=== PATIENT | female | born 1985 | race Asian ===

== ENCOUNTER 2017-12-10 03:00 | Inpatient (IN) | payer SELFPAY ==
[~2017-12-10] VITALS: Ht 164 cm; Wt 68.0 kg
[2017-12-10] MEDS ORDERED: PREN1SGL25 PO (04:35)
[2017-12-10] MEDS ORDERED: METHYLERGONOVINE 0.2 MG/ML AMP IM PRN ×2 (04:35→07:20)
[2017-12-10] MEDS ORDERED: CARBOPROST 250 MCG/ML AMP IM PRN (04:35)
[2017-12-10] MEDS ORDERED: LACTATED RINGERS 1,000 ML IV SCH (04:35)
[2017-12-10] MEDS ORDERED: CITRIC ACID/SODIUM CITRATE 30 ML UDC ONE (05:11)
[2017-12-10] MEDS ORDERED: ceFAZolin 1,000 MG VIAL ONE (05:11)
[2017-12-10 05:13] LABS: BASOPHILS # (AUTO) 0.2 K/uL (0.00-0.22); BASOPHILS % (AUTO) 2.1 % (0.0-2.0); EOSINOPHILS # (AUTO) 0.4 K/uL (0-0.4); EOSINOPHILS % (AUTO) 4.6 % (0.0-4.0); HEMATOCRIT 33.2 % (36-48); HEMOGLOBIN 10.4 g/dL (12.0-16.0); LYMPHOCYTES # (AUTO) 1.9 K/uL (2.5-16.5); LYMPHOCYTES % (AUTO) 20.2 % (20.5-51.1); MEAN CORPUSCULAR HEMOGLOBIN 26 pg (27-31); MEAN CORPUSCULAR HGB CONC 31 g/dL (33-37); MEAN CORPUSCULAR VOLUME 81 fL (80-94); MONOCYTES # (AUTO) 0.7 K/uL (0.8-1.0); MONOCYTES % (AUTO) 6.9 % (1.7-9.3); NEUTROPHILS # (AUTO) 6.4 K/uL (1.8-7.7); NEUTROPHILS % (AUTO) 66.2 % (42.2-75.2); PLATELET COUNT (AUTO) 225 K/uL (140-450); RED BLOOD CELL COUNT(AUTO) 4.08 MIL/uL (4.20-5.40); RED CELL DISTRIBUTION WIDTH 13.6 % (11.6-13.7); WHITE BLOOD COUNT (AUTO) 9.6 K/uL (4.8-10.8)
[2017-12-10 05:43] VITALS: BP 99/61
[2017-12-10 05:47] LABS: ALBUMIN 2.7 g/dL (3.4-5.0); ANION GAP 13.4 (8-16); CARBON DIOXIDE 23.3 mmol/L (21-32); CREATININE 0.5 mg/dL (0.6-1.3); POTASSIUM 3.7 mmol/L (3.5-5.1); TOTAL BILIRUBIN 0.3 mg/dL (0.0-1.0)
[2017-12-10] MEDS ORDERED: OXYTOCIN 10 UNITS/ML VIAL ONE (06:07)
[2017-12-10] MEDS ORDERED: METHYLERGONOVINE 0.2 MG/ML AMP ONE (06:08)
[2017-12-10] MEDS ORDERED: TRIAMCINOLONE 40 MG/ML 5ML VIAL ONE (06:08)
[2017-12-10] MEDS ORDERED: MORPHINE PRES FREE 10 MG/10 ML AMP IV ONE (06:21)
[2017-12-10] MEDS ORDERED: ONDANSETRON 4 MG/2 ML VIAL ONE (06:27)
[2017-12-10] MEDS ORDERED: OXYTOCIN 20 UNITS in LACTATED RINGERS 1,000 ML IV SCH (06:56)
[2017-12-10] MEDS ORDERED: ONDANSETRON 4 MG/2 ML VIAL IVP PRN (07:00)
[2017-12-10] MEDS ORDERED: KETOROLAC 30 MG/ML VIAL IVP PRN (07:00)
[2017-12-10] MEDS ORDERED: diphenhydrAMINE 50 MG/ML VIAL IVP PRN (07:00)
[2017-12-10] MEDS ORDERED: NALOXONE 0.4 MG/ML VIAL IVP PRN ×2 (07:00)
[2017-12-10] MEDS ORDERED: SIMETHICONE 80 MG TAB.CHEW PO PRN (07:20)
[2017-12-10] MEDS ORDERED: TRIMETHOBENZAMIDE 200 MG/2 ML SYR IM PRN (07:20)
[2017-12-10] MEDS ORDERED: MEASLES, MUMPS, AND RUBELLA 1 VIAL SQVAC PRN (07:20)
--- NOTE | 2017-12-10 10:48 | NUR ---
PATIENT HAS BEEN SCREENED AND CATEGORIZED LOW NUTRITION RISK. PATIENT WILL BE SEEN WITHIN 7 DAYS OF ADMISSION. 12/16/[address]
[2017-12-10 11:30] LABS: APPEARANCE,URINE HAZY (CLEAR); BILIRUBIN,URINE NEGATIVE (NEGATIVE); BLOOD, URINE 1+ (NEGATIVE); COLOR,URINE YELLOW (YELLOW); LEUKOCYTE ESTERASE ,URINE 3+ (NEGATIVE); NITRITE, URINE NEGATIVE (NEGATIVE); PH,URINE 7.5 (5.0-9.0); UGLUCOSE NEGATIVE (NEGATIVE)
[2017-12-10 11:54] LABS: RBC,URINE 0-5 (RARE) /HPF (0-5)
[2017-12-10] MEDS: OXYTOCIN 20 UNITS in LACTATED RINGERS 1,000 ML IV SCH (13:30)
[2017-12-10] MEDS: ceFAZolin 2,000 MG in NACL 0.9% 100 ML IV SCH ×2 (13:37→21:16)
[2017-12-10] MEDS: DOCUSATE SOD/SENNA 50/8.6 MG 1 TAB PO SCH (21:58)
[2017-12-11] MEDS ORDERED: IBUPROFEN 800 MG TAB PO PRN (01:00)
[2017-12-11] MEDS ORDERED: oxyCODONE/APAP 5/325 MG 1 TAB TAB PO PRN (01:00)
[2017-12-11] MEDS ORDERED: TEMAZEPAM 15 MG CAP PO PRN (01:00)
[2017-12-11] MEDS ORDERED: HYDROcodone/APAP 5/325 MG 1 TAB TAB PO PRN (01:00)
[2017-12-11] MEDS: OXYTOCIN 20 UNITS in LACTATED RINGERS 1,000 ML IV SCH (01:02)
[2017-12-11 13:34] LABS: HEMOGLOBIN 10.1 g/dL (12.0-16.0); MEAN CORPUSCULAR HEMOGLOBIN 26 pg (27-31); MEAN CORPUSCULAR HGB CONC 33 g/dL (33-37); MEAN CORPUSCULAR VOLUME 80 fL (80-94); PLATELET COUNT (AUTO) 234 K/uL (140-450); RED CELL DISTRIBUTION WIDTH 13.9 % (11.6-13.7); WHITE BLOOD COUNT (AUTO) 15.1 K/uL (4.8-10.8)
[2017-12-11 13:35] LABS: BASOPHILS # (AUTO) 0.1 K/uL (0.00-0.22); BASOPHILS % (AUTO) 0.8 % (0.0-2.0); EOSINOPHILS # (AUTO) 0.2 K/uL (0-0.4); LYMPHOCYTES # (AUTO) 1.3 K/uL (2.5-16.5); LYMPHOCYTES % (AUTO) 8.6 % (20.5-51.1); MONOCYTES # (AUTO) 0.7 K/uL (0.8-1.0); MONOCYTES % (AUTO) 4.8 % (1.7-9.3); NEUTROPHILS # (AUTO) 12.8 K/uL (1.8-7.7); NEUTROPHILS % (AUTO) 84.8 % (42.2-75.2)
[2017-12-11] MEDS ORDERED: OXYTOCIN 10 UNITS/ML VIAL ONE (17:33)
[2017-12-11] MEDS ORDERED: SIMETHICONE 80 MG TAB.CHEW ONE (19:44)
[2017-12-11] MEDS ORDERED: DOCUSATE SOD/SENNA 50/8.6 MG 1 TAB ONE (19:44)
[2017-12-11] MEDS ORDERED: oxyCODONE/APAP 5/325 MG 1 TAB TAB ONE (19:45)
[2017-12-11] MEDS: DOCUSATE SOD/SENNA 50/8.6 MG 1 TAB PO SCH (19:47)
[2017-12-11] MEDS ORDERED: INFLUENZA VIRUS VACCINE QUAD 0.5 ML SYR IMVAC SCH (20:20)
[2017-12-12] MEDS ORDERED: INFLUENZA VIRUS VACCINE QUAD 0.5 ML SYR IMVAC ONE (02:12)
[2017-12-12] MEDS ORDERED: MOT200 PO (10:41)
== END 2017-12-12 13:00 | disposition home or self-care (01) | DRG 766 ==
LOC: MFCC 03:00 → MLD 03:35 → MFCC 08:07
PROVIDERS: ADMIT Obstetrics & Gynecology; ATTEND Obstetrics & Gynecology
PROC: 10D00Z1 Extraction of Products of Conception, Low, Open Approach (ICD-10-PCS; principal; 2017-12-10 06:00)
PROC: 3E0234Z Introduction of Serum, Toxoid and Vaccine into Muscle, Percutaneous Approach (ICD-10-PCS; 2017-12-12)
DX: O34.211 Maternal care for low transverse scar from previous cesarean delivery (principal); Z23 Encounter for immunization; Z37.0 Single live birth; Z3A.39 39 weeks gestation of pregnancy
CPT/HCPCS: 36415; 80053; 81001; 85025; 86592; 86886; 86900; 86901; 87086; 90658; 90715; J0690; J1885; J2210; J2270; J2405; J2590; J3301; J7060; J7120